=== PATIENT | female | born 1960 | race Caucasian/White ===

== ENCOUNTER → 2020-09-26 13:29 | Outpatient (CLI) | payer OTHER, SELFPAY ==
--- NOTE | ~2020-09-26 | MM_ITS ---
EXAMINATION: MM screening allen BI w [facility] HISTORY: Screening mammogram TECHNIQUE: Craniocaudal and mediolateral oblique 3-D tomosynthesis images were obtained and synthetic 2-D images were generated. CAD analysis was submitted and interpreted. COMPARISON: No prior mammogram is available for comparison at this institution. BREAST PARENCHYMAL COMPOSITION: There are scattered areas of fibroglandular density. FINDINGS: Right breast: There is no evidence of suspicious mass, calcification, or architectural distortion to suggest malignancy in the right breast. Left breast: At least 3 circumscribed low-density masses are identified in the left breast; diagnosti c left mammogram and left breast ultrasound examination are recommended.. IMPRESSION: 1. At least 3 circumscribed breast masses are noted on the left 2. Diagnostic left mammogram and left breast ultrasound examination are recommended. BI-RADS Category 0: Incomplete: Needs additional imaging evaluation. Reviewed, dictated and finalized at location A. IMPRESSION: 1. At least 3 circumscribed breast masses are noted on the left 2. Diagnostic left mammogram and left breast ultrasound examination are recomme nded. BI-RADS Category 0: Incomplete: Needs additional imaging evaluation.
== END ==
PROVIDERS: PCP Pediatrics; Visit Provider Pediatrics
DX: Z12.31 Encounter for screening mammogram for malignant neoplasm of breast (principal); R92.8 Other abnormal and inconclusive findings on diagnostic imaging of breast
CPT/HCPCS: 77063; 77067

== ENCOUNTER → 2020-10-27 09:08 | Outpatient (CLI) | payer OTHER, SELFPAY ==
--- NOTE | ~2020-10-27 | MMUS_ITS ---
EXAMINATION: MM diagnostic allen LT w apollo, US breast LT limited HISTORY: Possible left breast mass screening mammogram TECHNIQUE: Additional 3-D tomosynthesis images of the left breast were performed and synthetic 2-D im ages were generated. CAD analysis was submitted and interpreted. High resolution limited left breast ultrasound was performed. COMPARISON: 09/26/2020, 12/17/2016, 07/09/2016 FINDINGS: MAMMOGRAPHIC FINDINGS: There is a 7 mm mass in the posterior third of the outer breast at 3:00 location which has the appear ance of an intramammary lymph node. A 7 mm low-density, obscured, oval mass is present in the posteri or third of the lower breast at the 4:00 location 6 cm from the nipple. ULTRASOUND: There is a 9 mm x 5 mm oval, circumscribed, parallel, hypoechoic mass with no posterior features or i nternal vascularity at the 4:00 location 4 cm from the nipple. There is a cyst at the 12:00 location near the nipple. A 3 mm x 2 mm oval, circumscribed, parallel, hypoechoic mass with no posterior featu res or internal vascularity is present at the 1:00 location 3 cm from the nipple. A 6 mm x 3 mm mass with similar sonographic features is present at the 2:00 location 5 cm from the nipple. IMPRESSION: 1. Probably benign left breast masses. 2. Recommend 6 month follow-up left diagnostic mammogram and ultrasound. BI-RADS category 3, probably benign findings. Reviewed, dictated and finalized at location A. IMPRESSION: 1. Probably benign left breast masses. 2. Recommend 6 month follow-up left diagnostic mammogram and ultrasound. BI-RADS category 3, probably benign findings.
== END ==
PROVIDERS: PCP Pediatrics; Visit Provider Pediatrics
DX: N63.25 Unspecified lump in the left breast, overlapping quadrants (principal); N63.21 Unspecified lump in the left breast, upper outer quadrant; N60.02 Solitary cyst of left breast
CPT/HCPCS: 76642; 77061; 77065; G0279

== ENCOUNTER → 2021-12-01 11:15 | Outpatient (CLI) | payer SELFPAY ==
--- NOTE | ~2021-12-01 | US_ITS ---
EXAMINATION: US thyroid DATE: 12/01/2021 15:16 INDICATION: Enlarged thyroid. TECHNIQUE: Multiple ultrasound images of the thyroid were obtained. COMPARISON: Thyroid ultrasound 11/18/2015 FINDINGS: The right thyroid lobe measures 4.9 x 1.7 x 1.4 cm. The left thyroid lobe measures 5.7 x 2.6 x 3.7 c m. In the right thyroid lobe, there is a 13 mm solid, hypoechoic, wider than tall nodule with smooth margin without echogenic foci (TI-RADS TR4), increased from 9 mm on 11/18/15. In the right thyroid lo be, there is an 11 mm solid, hypoechoic, wider than tall nodule with lobulated margin without echogen ic foci (TR4), stable from 11/18/15. In the left thyroid lobe, there is a 4.5 cm mixed cystic and david d, isoechoic, wider than tall nodule with smooth margin without echogenic foci (TR2), increased from 2.3 cm on 11/18/15. IMPRESSION: 1. Thyroid nodules. Thyroid ultrasound is recommended in one year. Reviewed, dictated and finalized at location A.
== END ==
PROVIDERS: PCP Pediatrics; Visit Provider Pediatrics
DX: D48.9 Neoplasm of uncertain behavior, unspecified (principal); R03.0 Elevated blood-pressure reading, without diagnosis of hypertension; E04.2 Nontoxic multinodular goiter
CPT/HCPCS: 76536